=== PATIENT | female | born 1960 | race Caucasian/White ===

== ENCOUNTER 2017-05-14 14:48 | Inpatient (IN) | payer MEDICAID ==
[~2017-05-14] VITALS: Ht 149.9 cm; Wt 57.0 kg
[2017-05-14 16:10] LABS: ASPARTATE AMINO TRANSFERASE 66 U/L (15-37); BLOOD UREA NITROGEN 11 mg/dL (7-18)
[2017-05-14 16:13] LABS: ACETAMINOPHEN 22 mcg/mL (10-30)
[2017-05-14 17:22] LABS: DAU SCREEN DISCLAIMER
[2017-05-14] MEDS ORDERED: NALOXONE 0.4 MG/ML, 1ML ONE (19:37)
[2017-05-14] MEDS ORDERED: NALOXONE 0.4 MG/ML, 1ML IVPush ONE (20:00)
[2017-05-14] MEDS ORDERED: NS + 40MEQ KCL 1,000 ML IV ONE (20:22)
[2017-05-14] MEDS ORDERED: POTASSIUM CHLORIDE 20 MEQ TAB.ER.PRT ONE (20:23)
[2017-05-14] MEDS ORDERED: POTASSIUM CHLORIDE 40 MEQ in SODIUM CHLORIDE 0.9% 500 ML IV ONE (20:30)
[2017-05-14] MEDS: POTASSIUM CHLORIDE 20 MEQ TAB.ER.PRT PO ONE ×2 (20:33→21:40)
[2017-05-14] MEDS ORDERED: ACETAMINOPHEN 325 MG TABLET PO PRN (21:30)
[2017-05-14] MEDS ORDERED: DOCUSATE 100 MG CAPSULE PO PRN (21:30)
[2017-05-14] MEDS ORDERED: POLYETHYLENE GLYCOL 17 GM PACKET PO PRN (21:30)
[2017-05-14] MEDS ORDERED: ONDANSETRON 2MG/ML, 2ML IVPush PRN (21:30)
[2017-05-14 22:08] VITALS: BP 150/95
[2017-05-14] MEDS ORDERED: PNEUMOCOCCAL 23 VACCINE IM-VACC ONE (22:30)
[2017-05-14] MEDS: NICOTINE 14MG/24 HR PATCH.TD24 TD SCH (22:45)
[2017-05-14] MEDS: ENOXAPARIN 40 MG/0.4 ML SQ SCH (22:46)
[2017-05-15 01:39] VITALS: BP 145/93
[2017-05-15] MEDS: NS + 20MEQ KCL 1,000 ML IV SCH ×2 (02:59→12:27)
[2017-05-15 06:16] LABS: BLOOD UREA NITROGEN 7 mg/dL (7-18)
[2017-05-15 07:13] VITALS: BP 143/81
[2017-05-15] MEDS ORDERED: MAGNESIUM SULFATE PMX 2GM/50ML 50 ML IV ONE (10:00)
[2017-05-15] MEDS: SENNA/DOCUSATE TABLET PO SCH (10:58)
[2017-05-15] MEDS: HYDROcodone/APAP 5/325 TABLET PO PRN ×4 (11:01→23:03)
[2017-05-15 12:21] VITALS: BP 153/97
[2017-05-15 20:02] VITALS: BP 168/120
[2017-05-15] MEDS ORDERED: LORazepam 0.5MG TABLET PO ONE (22:00)
[2017-05-15] MEDS ORDERED: LORazepam 1MG TABLET ONE (22:00)
[2017-05-15 22:03] VITALS: BP 152/98
[2017-05-15] MEDS: ENOXAPARIN 40 MG/0.4 ML SQ SCH (22:05)
[2017-05-15] MEDS: NICOTINE 14MG/24 HR PATCH.TD24 TD SCH (22:05)
[2017-05-16 01:59] VITALS: BP 161/102
[2017-05-16] MEDS: HYDROcodone/APAP 5/325 TABLET PO PRN ×4 (03:01→15:51)
[2017-05-16 06:18] LABS: ASPARTATE AMINO TRANSFERASE 3827 U/L (15-37); BLOOD UREA NITROGEN 4 mg/dL (7-18)
[2017-05-16 07:22] VITALS: BP 159/106
[2017-05-16] MEDS ORDERED: ACETYLCYSTEINE IV ONE ×3 (08:00→12:30)
[2017-05-16] MEDS ORDERED: DEXTROSE 5% IV ONE ×3 (08:00→12:30)
[2017-05-16 08:45] VITALS: BP 134/88
[2017-05-16] MEDS: MAGNESIUM OXIDE 400 MG TABLET PO SCH (08:48)
[2017-05-16] MEDS: SENNA/DOCUSATE TABLET PO SCH (08:48)
[2017-05-16 13:15] VITALS: BP 147/99
[2017-05-16] MEDS ORDERED: OXYcodone IR 5MG TABLET PO ONE (16:30)
[2017-05-16 20:03] VITALS: BP 140/93
[2017-05-16] MEDS: NICOTINE 14MG/24 HR PATCH.TD24 TD SCH (22:08)
[2017-05-16] MEDS: ENOXAPARIN 40 MG/0.4 ML SQ SCH (22:08)
[2017-05-17 03:01] VITALS: BP 130/90
[2017-05-17] MEDS: OXYcodone IR 5MG TABLET PO PRN ×5 (03:49→22:13)
[2017-05-17 05:44] LABS: BLOOD UREA NITROGEN 5 mg/dL (7-18)
[2017-05-17 06:02] LABS: ASPARTATE AMINO TRANSFERASE 1717 U/L (15-37)
[2017-05-17 07:31] VITALS: BP 146/104
[2017-05-17] MEDS: SENNA/DOCUSATE TABLET PO SCH (09:00)
[2017-05-17 09:41] LABS: HEPATITIS C VIRUS ANTIBODY Nonreactive (Nonreactive)
[2017-05-17] MEDS: MAGNESIUM OXIDE 400 MG TABLET PO SCH (09:55)
[2017-05-17 14:35] VITALS: BP 117/86
[2017-05-17 19:37] VITALS: BP 125/89
[2017-05-17] MEDS ORDERED: POTASSIUM CHLORIDE 20 MEQ TAB.ER.PRT PO ONE (20:30)
[2017-05-17] MEDS: ENOXAPARIN 40 MG/0.4 ML SQ SCH (22:13)
[2017-05-17] MEDS: NICOTINE 14MG/24 HR PATCH.TD24 TD SCH (22:14)
[2017-05-18 02:58] VITALS: BP 117/85
[2017-05-18] MEDS: OXYcodone IR 5MG TABLET PO PRN ×5 (03:32→20:18)
[2017-05-18 06:08] LABS: ASPARTATE AMINO TRANSFERASE 485 U/L (15-37); BLOOD UREA NITROGEN 7 mg/dL (7-18)
[2017-05-18 06:53] VITALS: BP 122/85
[2017-05-18] MEDS: MAGNESIUM OXIDE 400 MG TABLET PO SCH (07:43)
[2017-05-18] MEDS: SENNA/DOCUSATE TABLET PO SCH (07:43)
[2017-05-18 14:30] VITALS: BP 134/81
[2017-05-18 20:39] VITALS: BP 134/88
[2017-05-18] MEDS: NICOTINE 14MG/24 HR PATCH.TD24 TD SCH (22:33)
[2017-05-18] MEDS: ENOXAPARIN 40 MG/0.4 ML SQ SCH (22:33)
[2017-05-19] MEDS: OXYcodone IR 5MG TABLET PO PRN ×4 (01:06→12:57)
[2017-05-19 02:34] VITALS: BP 155/97
[2017-05-19 06:25] LABS: ASPARTATE AMINO TRANSFERASE 209 U/L (15-37); BLOOD UREA NITROGEN 12 mg/dL (7-18)
[2017-05-19 06:50] VITALS: BP 122/83
[2017-05-19] MEDS: SENNA/DOCUSATE TABLET PO SCH (08:12)
[2017-05-19] MEDS: MAGNESIUM OXIDE 400 MG TABLET PO SCH (08:12)
[2017-05-19 13:03] VITALS: BP 127/86
[2017-05-19] MEDS ORDERED: OXYC5TAB3 PO (15:07)
== END 2017-05-19 15:10 | disposition home or self-care (01) | DRG 917 ==
LOC: ED 20:53 → EDIP 21:00 → SUATTDRO 21:08 → 4NOR 22:02
PROVIDERS: ADMIT Family Medicine; ATTEND Internal Medicine
DX: T42.4X1A Poisoning by benzodiazepines, accidental (unintentional), initial encounter (principal); N17.0 Acute kidney failure with tubular necrosis; G92 Toxic encephalopathy; J96.01 Acute respiratory failure with hypoxia; D75.1 Secondary polycythemia; J44.9 Chronic obstructive pulmonary disease, unspecified; G89.29 Other chronic pain; F41.9 Anxiety disorder, unspecified; E87.6 Hypokalemia; E86.0 Dehydration; E83.42 Hypomagnesemia; Z66 Do not resuscitate; F17.210 Nicotine dependence, cigarettes, uncomplicated; M25.521 Pain in right elbow; S52.123A Displaced fracture of head of unspecified radius, initial encounter for closed fracture; Z83.3 Family history of diabetes mellitus; Z23 Encounter for immunization
CPT/HCPCS: 36415; 70450; 71010; 76700; 80048; 80053; 80074; 80307; 80329; 82550; 82668; 83540; 83550; 83735; 84100; 84443; 85025; 90732; 93005; 96365; 96375; J0132; J1650; J2310; J3480; J7060; J7070; G0480; J3475; J7040

== ENCOUNTER 2017-05-23 13:00 | Emergency (ER) | payer MEDICAID ==
[~2017-05-23] VITALS: Ht 149.9 cm; Wt 55.8 kg
[~2017-05-23 13:00] MED LIST: OXYC5TAB3 PO
[2017-05-23] MEDS ORDERED: SODIUM CHLORIDE 0.9%, 500ML IVBOLUS ONE (14:00)
[2017-05-23] MEDS ORDERED: SODIUM CHLORIDE FLUSH 10ML SYR IVF ONE (14:00)
[2017-05-23] MEDS ORDERED: ONDANSETRON 2MG/ML, 2ML IVPush ONE (14:00)
[2017-05-23 14:44] LABS: ASPARTATE AMINO TRANSFERASE 57 U/L (15-37); BLOOD UREA NITROGEN 13 mg/dL (7-18)
[2017-05-23 14:48] LABS: ACETAMINOPHEN < 2 mcg/mL (10-30)
[2017-05-23] MEDS ORDERED: ONDANSETRON 2MG/ML, 2ML ONE (15:19)
[2017-05-23] MEDS ORDERED: OXYcodone IR 5MG TABLET PO ONE (16:00)
[2017-05-23] MEDS ORDERED: OXYcodone IR 5MG TABLET ONE (16:12)
[2017-05-23 16:35] VITALS: BP 144/72
== END 2017-05-23 16:37 | disposition home or self-care (01) ==
LOC: ED 14:08
DX: R53.1 Weakness (principal); F32.9 Major depressive disorder, single episode, unspecified; R74.0 Nonspecific elevation of levels of transaminase and lactic acid dehydrogenase [LDH]; F10.10 Alcohol abuse, uncomplicated; J44.9 Chronic obstructive pulmonary disease, unspecified; F41.9 Anxiety disorder, unspecified; E87.6 Hypokalemia; Z72.9 Problem related to lifestyle, unspecified
CPT/HCPCS: 36415; 71020; 80053; 80307; 80329; 83690; 85025; 85610; 85730; 93005; 96360; G0480; J7040

== ENCOUNTER 2017-06-15 10:16 | Inpatient (IN) | payer MEDICAID ==
[~2017-06-15] VITALS: Ht 149.9 cm; Wt 59.3 kg
[2017-06-15] MEDS ORDERED: LORazepam 1MG TABLET ONE ×2 (10:25→19:37)
[2017-06-15] MEDS ORDERED: CARV3.122 PO (10:27)
[2017-06-15] MEDS ORDERED: LORazepam 1MG TABLET PO ONE ×2 (10:30→20:00)
[2017-06-15 10:38] LABS: HEMATOCRIT 56.8 % (34.6-47.8); HEMOGLOBIN 18.9 g/dL (11.7-16.4); WHITE BLOOD COUNT 9.2 x10^3/uL (3.4-10)
[2017-06-15 10:38] LABS: DAU SCREEN DISCLAIMER
[2017-06-15 10:50] LABS: BLOOD UREA NITROGEN 12 mg/dL (7-18)
[2017-06-15] MEDS ORDERED: POTASSIUM CHLORIDE 20 MEQ TAB.ER.PRT ONE (10:58)
[2017-06-15 10:59] LABS: ASPARTATE AMINO TRANSFERASE 43 U/L (15-37)
[2017-06-15 11:00] LABS: ACETAMINOPHEN < 2 mcg/mL (10-30)
[2017-06-15] MEDS ORDERED: POTASSIUM CHLORIDE 20 MEQ TAB.ER.PRT PO ONE (11:00)
[2017-06-15] MEDS ORDERED: ONDANSETRON 2MG/ML, 2ML IV PRN (22:30)
[2017-06-15] MEDS ORDERED: ALUMINUM/MAG/SIMETHICONE 30 ML UDC PO PRN (22:30)
[2017-06-15] MEDS: ENOXAPARIN 40 MG/0.4 ML SQ SCH (22:30)
[2017-06-15] MEDS ORDERED: LORazepam 2 MG/ML, 1ML IV PRN (22:30)
[2017-06-15] MEDS ORDERED: ONDANSETRON 2MG/ML, 2ML ONE (23:33)
[2017-06-16] VITALS (7 sets, daily range): BP systolic 129–169; BP diastolic 90–119
[2017-06-16] MEDS ORDERED: DIPHENHYDRAMINE 50 MG CAPSULE ONE (03:57)
[2017-06-16] MEDS ORDERED: LORazepam 2 MG/ML, 1ML ONE (03:58)
[2017-06-16] MEDS: LORazepam 2 MG/ML, 1ML IV PRN ×4 (04:04→23:10)
[2017-06-16] MEDS: DIPHENHYDRAMINE 50 MG CAPSULE PO PRN (04:05)
[2017-06-16] MEDS: POTASSIUM CHLORIDE 10 MEQ, MAGNESIUM SULFATE 1 GM, THIAMINE 100 MG, FOLIC ACID 1 MG, MV... IV SCH (09:42)
[2017-06-16] MEDS: BACLOFEN 10 MG TABLET PO SCH ×2 (09:42→21:44)
[2017-06-16] MEDS: LISINOPRIL 10 MG TABLET PO SCH (14:04)
[2017-06-16] MEDS: metroNIDAZOLE 500 MG TABLET PO SCH (21:44)
[2017-06-16] MEDS: ENOXAPARIN 40 MG/0.4 ML SQ SCH (23:01)
[2017-06-16] MEDS: IBUPROFEN 200 MG TABLET PO PRN (23:01)
[2017-06-17 02:31] VITALS: BP 164/121
[2017-06-17 03:02] VITALS: BP 147/99
[2017-06-17] MEDS: IBUPROFEN 200 MG TABLET PO PRN ×2 (06:22→12:41)
[2017-06-17] MEDS: LORazepam 2 MG/ML, 1ML IV PRN ×2 (06:22→09:09)
[2017-06-17 09:00] VITALS: BP 191/102
[2017-06-17] MEDS ORDERED: LORazepam 2 MG/ML, 1ML IVPush PRN (09:00)
[2017-06-17] MEDS ORDERED: LABETALOL 5MG/ML, 20ML IVPush PRN (09:00)
[2017-06-17] MEDS: LISINOPRIL 10 MG TABLET PO SCH (09:09)
[2017-06-17] MEDS: BACLOFEN 10 MG TABLET PO SCH ×2 (09:09→20:29)
[2017-06-17] MEDS: metroNIDAZOLE 500 MG TABLET PO SCH ×3 (09:09→20:29)
[2017-06-17] MEDS: POTASSIUM CHLORIDE 10 MEQ, MAGNESIUM SULFATE 1 GM, THIAMINE 100 MG, FOLIC ACID 1 MG, MV... IV SCH (12:34)
[2017-06-17] MEDS ORDERED: LORazepam 1MG TABLET ONE (12:49)
[2017-06-17 15:53] VITALS: BP 144/94
[2017-06-17 19:44] VITALS: BP 147/93
[2017-06-17] MEDS: ENOXAPARIN 40 MG/0.4 ML SQ SCH (22:58)
[2017-06-18] VITALS (10 sets, daily range): BP systolic 144–167; BP diastolic 90–125
[2017-06-18] MEDS: LORazepam 2 MG/ML, 1ML IV PRN ×3 (01:50→14:20)
[2017-06-18] MEDS: IBUPROFEN 200 MG TABLET PO PRN ×3 (04:58→17:33)
[2017-06-18] MEDS: LISINOPRIL 20 MG TABLET PO SCH (07:17)
[2017-06-18] MEDS: BACLOFEN 10 MG TABLET PO SCH ×2 (08:23→20:20)
[2017-06-18] MEDS: metroNIDAZOLE 500 MG TABLET PO SCH ×3 (08:23→20:20)
[2017-06-18] MEDS: CARVEDILOL 3.125 MG TABLET PO SCH ×2 (10:11→17:33)
[2017-06-18] MEDS: FOLIC ACID 1 MG TABLET PO SCH (10:11)
[2017-06-18] MEDS: MULTIVITAMIN 1 TABLET PO SCH (10:11)
[2017-06-18] MEDS: THIAMINE 100MG TABLET PO SCH (10:11)
[2017-06-18 10:32] LABS: BLOOD UREA NITROGEN 13 mg/dL (7-18)
[2017-06-18] MEDS: POTASSIUM CHLORIDE 20 MEQ TAB.ER.PRT PO SCH (17:00)
[2017-06-18] MEDS: ENOXAPARIN 40 MG/0.4 ML SQ SCH (20:20)
[2017-06-19] MEDS: IBUPROFEN 200 MG TABLET PO PRN ×4 (01:36→22:35)
[2017-06-19] MEDS: DIPHENHYDRAMINE 50 MG CAPSULE PO PRN (01:36)
[2017-06-19 01:37] VITALS: BP 147/105
[2017-06-19 05:12] LABS: BLOOD UREA NITROGEN 8 mg/dL (7-18)
[2017-06-19] MEDS: CARVEDILOL 3.125 MG TABLET PO SCH ×2 (06:07→16:36)
[2017-06-19 07:57] VITALS: BP 126/88
[2017-06-19] MEDS: THIAMINE 100MG TABLET PO SCH (08:25)
[2017-06-19] MEDS: BACLOFEN 10 MG TABLET PO SCH ×2 (08:25→20:48)
[2017-06-19] MEDS: FOLIC ACID 1 MG TABLET PO SCH (08:25)
[2017-06-19] MEDS: metroNIDAZOLE 500 MG TABLET PO SCH ×3 (08:26→20:48)
[2017-06-19] MEDS: MULTIVITAMIN 1 TABLET PO SCH (08:26)
[2017-06-19] MEDS: POTASSIUM CHLORIDE 20 MEQ TAB.ER.PRT PO SCH (08:26)
[2017-06-19] MEDS: LISINOPRIL 20 MG TABLET PO SCH (08:26)
[2017-06-19] MEDS: LORazepam 2 MG/ML, 1ML IV PRN (11:05)
[2017-06-19 12:37] VITALS: BP 145/86
[2017-06-19] MEDS: FLUOXETINE 20 MG CAPSULE PO SCH (16:36)
[2017-06-19 19:47] VITALS: BP 145/88
[2017-06-19] MEDS: TRAZODONE 50MG TABLET PO SCH (20:48)
[2017-06-19] MEDS: ENOXAPARIN 40 MG/0.4 ML SQ SCH (22:35)
[2017-06-20 04:36] VITALS: BP 138/85
[2017-06-20] MEDS: CARVEDILOL 3.125 MG TABLET PO SCH ×2 (05:04→17:29)
[2017-06-20] MEDS: IBUPROFEN 200 MG TABLET PO PRN ×4 (05:04→23:19)
[2017-06-20 08:09] VITALS: BP 146/102
[2017-06-20] MEDS: BACLOFEN 10 MG TABLET PO SCH ×2 (08:12→20:25)
[2017-06-20] MEDS: MULTIVITAMIN 1 TABLET PO SCH (08:12)
[2017-06-20] MEDS: FLUOXETINE 20 MG CAPSULE PO SCH (08:12)
[2017-06-20] MEDS: THIAMINE 100MG TABLET PO SCH (08:12)
[2017-06-20] MEDS: LISINOPRIL 20 MG TABLET PO SCH (08:12)
[2017-06-20] MEDS: metroNIDAZOLE 500 MG TABLET PO SCH ×3 (08:12→20:25)
[2017-06-20] MEDS: FOLIC ACID 1 MG TABLET PO SCH (08:12)
[2017-06-20] MEDS: LORazepam 2 MG/ML, 1ML IV PRN (11:43)
[2017-06-20 14:25] VITALS: BP 128/85
[2017-06-20 16:55] VITALS: BP 144/75
[2017-06-20 19:00] VITALS: BP 132/91
[2017-06-20] MEDS: TRAZODONE 50MG TABLET PO SCH (20:25)
[2017-06-20] MEDS: ENOXAPARIN 40 MG/0.4 ML SQ SCH (23:19)
[2017-06-21 01:24] VITALS: BP 133/89
[2017-06-21] MEDS: CARVEDILOL 3.125 MG TABLET PO SCH ×2 (05:31→18:03)
[2017-06-21] MEDS: IBUPROFEN 200 MG TABLET PO PRN (05:31)
[2017-06-21 05:33] VITALS: BP 137/100
[2017-06-21 07:53] VITALS: BP 141/90
[2017-06-21] MEDS: metroNIDAZOLE 500 MG TABLET PO SCH ×3 (08:46→21:12)
[2017-06-21] MEDS: BACLOFEN 10 MG TABLET PO SCH ×2 (08:48→21:12)
[2017-06-21] MEDS: FOLIC ACID 1 MG TABLET PO SCH (08:48)
[2017-06-21] MEDS: MULTIVITAMIN 1 TABLET PO SCH (08:48)
[2017-06-21] MEDS: LISINOPRIL 20 MG TABLET PO SCH (08:49)
[2017-06-21] MEDS: FLUOXETINE 20 MG CAPSULE PO SCH (08:49)
[2017-06-21] MEDS: THIAMINE 100MG TABLET PO SCH (08:50)
[2017-06-21] MEDS: LACTOBACILLUS CHEW TABLET PO SCH ×3 (11:42→21:12)
[2017-06-21] MEDS: LORazepam 1MG TABLET PO PRN ×2 (11:43→18:48)
[2017-06-21 14:55] VITALS: BP 150/100
[2017-06-21 20:20] VITALS: BP 144/96
[2017-06-21] MEDS: TRAZODONE 50MG TABLET PO SCH (21:12)
[2017-06-21] MEDS: ENOXAPARIN 40 MG/0.4 ML SQ SCH (22:45)
[2017-06-22 02:15] VITALS: BP 132/91
[2017-06-22 05:00] VITALS: BP 141/91
[2017-06-22] MEDS: LACTOBACILLUS CHEW TABLET PO SCH ×4 (05:02→21:12)
[2017-06-22] MEDS: CARVEDILOL 3.125 MG TABLET PO SCH ×2 (05:02→17:13)
[2017-06-22 07:15] VITALS: BP 126/92
[2017-06-22] MEDS: metroNIDAZOLE 500 MG TABLET PO SCH ×3 (07:39→21:12)
[2017-06-22] MEDS: FLUOXETINE 20 MG CAPSULE PO SCH (07:40)
[2017-06-22] MEDS: MULTIVITAMIN 1 TABLET PO SCH (07:40)
[2017-06-22] MEDS: FOLIC ACID 1 MG TABLET PO SCH (07:40)
[2017-06-22] MEDS: LISINOPRIL 20 MG TABLET PO SCH (07:40)
[2017-06-22] MEDS: THIAMINE 100MG TABLET PO SCH (07:40)
[2017-06-22] MEDS: BACLOFEN 10 MG TABLET PO SCH ×2 (07:40→21:12)
[2017-06-22] MEDS: LORazepam 1MG TABLET PO PRN ×2 (09:35→15:36)
[2017-06-22 13:52] VITALS: BP 114/80
[2017-06-22 19:18] VITALS: BP 133/88
[2017-06-22] MEDS: TRAZODONE 50MG TABLET PO SCH (21:11)
[2017-06-22] MEDS: ENOXAPARIN 40 MG/0.4 ML SQ SCH (23:22)
[2017-06-23 01:03] VITALS: BP 126/85
[2017-06-23 06:05] VITALS: BP 165/108
[2017-06-23] MEDS: CARVEDILOL 3.125 MG TABLET PO SCH ×2 (06:08→16:48)
[2017-06-23] MEDS: LACTOBACILLUS CHEW TABLET PO SCH ×4 (06:08→19:52)
[2017-06-23 06:25] VITALS: BP 169/108
[2017-06-23] MEDS: LORazepam 1MG TABLET PO PRN ×2 (06:47→19:53)
[2017-06-23] MEDS: FLUOXETINE 20 MG CAPSULE PO SCH (07:42)
[2017-06-23] MEDS: THIAMINE 100MG TABLET PO SCH (07:42)
[2017-06-23] MEDS: MULTIVITAMIN 1 TABLET PO SCH (07:42)
[2017-06-23] MEDS: FOLIC ACID 1 MG TABLET PO SCH (07:42)
[2017-06-23] MEDS: BACLOFEN 10 MG TABLET PO SCH ×2 (07:43→19:53)
[2017-06-23] MEDS: LISINOPRIL 20 MG TABLET PO SCH (07:43)
[2017-06-23] MEDS: metroNIDAZOLE 500 MG TABLET PO SCH ×3 (07:43→19:53)
[2017-06-23] MEDS ORDERED: ONDANSETRON ODT 4 MG PO PRN (08:30)
[2017-06-23 12:15] VITALS: BP 137/90
[2017-06-23] MEDS: TRAZODONE 50MG TABLET PO SCH (19:53)
[2017-06-23 20:02] VITALS: BP 139/81
[2017-06-23] MEDS: ENOXAPARIN 40 MG/0.4 ML SQ SCH (22:35)
[2017-06-24 02:44] VITALS: BP 156/104
[2017-06-24 05:50] VITALS: BP 127/84
[2017-06-24] MEDS: CARVEDILOL 3.125 MG TABLET PO SCH ×2 (05:51→18:38)
[2017-06-24] MEDS: LACTOBACILLUS CHEW TABLET PO SCH ×4 (05:51→21:24)
[2017-06-24 07:10] VITALS: BP 141/87
[2017-06-24] MEDS: FLUOXETINE 20 MG CAPSULE PO SCH (08:32)
[2017-06-24] MEDS: metroNIDAZOLE 500 MG TABLET PO SCH ×3 (08:32→21:24)
[2017-06-24] MEDS: MULTIVITAMIN 1 TABLET PO SCH (08:32)
[2017-06-24] MEDS: THIAMINE 100MG TABLET PO SCH (08:32)
[2017-06-24] MEDS: BACLOFEN 10 MG TABLET PO SCH ×2 (08:32→21:24)
[2017-06-24] MEDS: FOLIC ACID 1 MG TABLET PO SCH (08:32)
[2017-06-24] MEDS: LISINOPRIL 20 MG TABLET PO SCH (08:32)
[2017-06-24] MEDS: LORazepam 1MG TABLET PO PRN ×2 (10:50→21:24)
[2017-06-24 14:20] VITALS: BP 127/85
[2017-06-24 19:48] VITALS: BP 127/86
[2017-06-24] MEDS: TRAZODONE 50MG TABLET PO SCH (21:24)
[2017-06-24] MEDS: ENOXAPARIN 40 MG/0.4 ML SQ SCH (22:25)
[2017-06-25 02:14] VITALS: BP 130/80
[2017-06-25] MEDS: LACTOBACILLUS CHEW TABLET PO SCH ×4 (05:45→20:11)
[2017-06-25] MEDS: CARVEDILOL 3.125 MG TABLET PO SCH ×2 (05:45→17:18)
[2017-06-25 07:11] VITALS: BP 131/96
[2017-06-25] MEDS: MULTIVITAMIN 1 TABLET PO SCH (09:42)
[2017-06-25] MEDS: THIAMINE 100MG TABLET PO SCH (09:42)
[2017-06-25] MEDS: LISINOPRIL 20 MG TABLET PO SCH (09:42)
[2017-06-25] MEDS: FLUOXETINE 20 MG CAPSULE PO SCH (09:42)
[2017-06-25] MEDS: BACLOFEN 10 MG TABLET PO SCH ×2 (09:42→20:11)
[2017-06-25] MEDS: metroNIDAZOLE 500 MG TABLET PO SCH ×3 (09:43→20:12)
[2017-06-25] MEDS: LORazepam 1MG TABLET PO PRN ×2 (09:43→20:12)
[2017-06-25] MEDS: FOLIC ACID 1 MG TABLET PO SCH (09:48)
[2017-06-25] MEDS ORDERED: FLUOXETINE 20 MG CAPSULE PO ONE (12:00)
[2017-06-25 14:14] VITALS: BP 104/70
[2017-06-25 17:15] VITALS: BP 144/96
[2017-06-25] MEDS: TRAZODONE 50MG TABLET PO SCH (20:12)
[2017-06-25] MEDS: ENOXAPARIN 40 MG/0.4 ML SQ SCH (20:12)
[2017-06-25 20:21] VITALS: BP 138/85
[2017-06-26 03:52] VITALS: BP 141/89
[2017-06-26] MEDS: LACTOBACILLUS CHEW TABLET PO SCH ×4 (05:18→20:39)
[2017-06-26] MEDS: CARVEDILOL 3.125 MG TABLET PO SCH ×2 (05:18→17:28)
[2017-06-26 08:22] VITALS: BP 141/92
[2017-06-26] MEDS: FOLIC ACID 1 MG TABLET PO SCH (09:24)
[2017-06-26] MEDS: THIAMINE 100MG TABLET PO SCH (09:24)
[2017-06-26] MEDS: metroNIDAZOLE 500 MG TABLET PO SCH ×3 (09:24→20:39)
[2017-06-26] MEDS: MULTIVITAMIN 1 TABLET PO SCH (09:24)
[2017-06-26] MEDS: LISINOPRIL 20 MG TABLET PO SCH (09:24)
[2017-06-26] MEDS: BACLOFEN 10 MG TABLET PO SCH ×2 (09:24→21:55)
[2017-06-26] MEDS: FLUOXETINE 20 MG CAPSULE PO SCH (09:25)
[2017-06-26 13:47] VITALS: BP 135/73
[2017-06-26] MEDS: LORazepam 1MG TABLET PO PRN (17:32)
[2017-06-26 20:38] VITALS: BP 130/87
[2017-06-26] MEDS: TRAZODONE 50MG TABLET PO SCH (20:39)
[2017-06-26] MEDS: ENOXAPARIN 40 MG/0.4 ML SQ SCH (21:55)
[2017-06-27] MEDS: CARVEDILOL 3.125 MG TABLET PO SCH ×2 (05:37→17:44)
[2017-06-27] MEDS: LACTOBACILLUS CHEW TABLET PO SCH ×4 (05:37→21:38)
[2017-06-27 08:30] VITALS: BP 128/87
[2017-06-27] MEDS: FLUOXETINE 20 MG CAPSULE PO SCH (08:30)
[2017-06-27] MEDS: BACLOFEN 10 MG TABLET PO SCH ×2 (08:30→21:39)
[2017-06-27] MEDS: metroNIDAZOLE 500 MG TABLET PO SCH ×3 (08:30→21:38)
[2017-06-27] MEDS: THIAMINE 100MG TABLET PO SCH (08:30)
[2017-06-27] MEDS: LISINOPRIL 20 MG TABLET PO SCH (08:30)
[2017-06-27] MEDS: MULTIVITAMIN 1 TABLET PO SCH (08:30)
[2017-06-27] MEDS: FOLIC ACID 1 MG TABLET PO SCH (08:30)
[2017-06-27 14:21] VITALS: BP 135/84
[2017-06-27 19:00] VITALS: BP 126/85
[2017-06-27] MEDS: TRAZODONE 50MG TABLET PO SCH (21:38)
[2017-06-27] MEDS: ENOXAPARIN 40 MG/0.4 ML SQ SCH (21:39)
[2017-06-28 02:42] VITALS: BP 112/90
[2017-06-28 06:27] VITALS: BP 135/94
[2017-06-28] MEDS: CARVEDILOL 3.125 MG TABLET PO SCH ×2 (06:28→17:23)
[2017-06-28] MEDS: LACTOBACILLUS CHEW TABLET PO SCH ×4 (06:28→22:06)
[2017-06-28 08:15] VITALS: BP 136/89
[2017-06-28] MEDS: THIAMINE 100MG TABLET PO SCH (08:49)
[2017-06-28] MEDS: LISINOPRIL 20 MG TABLET PO SCH (08:49)
[2017-06-28] MEDS: BACLOFEN 10 MG TABLET PO SCH ×2 (08:49→22:06)
[2017-06-28] MEDS: FLUOXETINE 20 MG CAPSULE PO SCH (08:49)
[2017-06-28] MEDS: FOLIC ACID 1 MG TABLET PO SCH (08:49)
[2017-06-28] MEDS: metroNIDAZOLE 500 MG TABLET PO SCH ×3 (08:49→22:06)
[2017-06-28] MEDS: MULTIVITAMIN 1 TABLET PO SCH (08:49)
[2017-06-28] MEDS: LORazepam 1MG TABLET PO PRN ×2 (08:53→15:07)
[2017-06-28] MEDS: KETOROLAC 30 MG/1 ML IM PRN ×2 (10:55→20:28)
[2017-06-28 13:55] VITALS: BP 132/84
[2017-06-28 19:42] VITALS: BP 119/81
[2017-06-28] MEDS: TRAZODONE 50MG TABLET PO SCH (22:06)
[2017-06-28] MEDS: ENOXAPARIN 40 MG/0.4 ML SQ SCH (22:06)
[2017-06-29 02:20] VITALS: BP 103/69
[2017-06-29 05:35] VITALS: BP 136/94
[2017-06-29] MEDS: CARVEDILOL 3.125 MG TABLET PO SCH ×2 (05:39→17:22)
[2017-06-29] MEDS: LACTOBACILLUS CHEW TABLET PO SCH ×4 (05:39→21:00)
[2017-06-29] MEDS: KETOROLAC 30 MG/1 ML IM PRN ×3 (05:40→17:22)
[2017-06-29 06:40] VITALS: BP 159/106
[2017-06-29] MEDS: LISINOPRIL 20 MG TABLET PO SCH (08:59)
[2017-06-29] MEDS: MULTIVITAMIN 1 TABLET PO SCH (08:59)
[2017-06-29] MEDS: FOLIC ACID 1 MG TABLET PO SCH (08:59)
[2017-06-29] MEDS: BACLOFEN 10 MG TABLET PO SCH ×2 (08:59→21:00)
[2017-06-29] MEDS: metroNIDAZOLE 500 MG TABLET PO SCH ×3 (08:59→21:00)
[2017-06-29] MEDS: THIAMINE 100MG TABLET PO SCH (08:59)
[2017-06-29] MEDS: FLUOXETINE 20 MG CAPSULE PO SCH (09:01)
[2017-06-29 12:35] VITALS: BP 137/90
[2017-06-29] MEDS: LORazepam 1MG TABLET PO PRN ×2 (15:14→22:35)
[2017-06-29 18:30] VITALS: BP 103/69
[2017-06-29 19:17] VITALS: BP 137/85
[2017-06-29] MEDS: TRAZODONE 50MG TABLET PO SCH (21:00)
[2017-06-29] MEDS: ENOXAPARIN 40 MG/0.4 ML SQ SCH (22:35)
[2017-06-30 02:00] VITALS: BP 103/63
[2017-06-30 05:33] VITALS: BP 139/89
[2017-06-30] MEDS: LACTOBACILLUS CHEW TABLET PO SCH ×4 (05:36→22:51)
[2017-06-30] MEDS: CARVEDILOL 3.125 MG TABLET PO SCH ×2 (05:36→16:57)
[2017-06-30] MEDS: LORazepam 1MG TABLET PO PRN ×2 (06:45→16:56)
[2017-06-30 08:30] VITALS: BP 158/109
[2017-06-30] MEDS ORDERED: THIA100T6 PO (08:43)
[2017-06-30] MEDS ORDERED: MULT1TAB60 PO (08:43)
[2017-06-30] MEDS ORDERED: FOLI-17 PO (08:43)
[2017-06-30] MEDS ORDERED: LISI-170 PO (08:43)
[2017-06-30] MEDS: FLUOXETINE 20 MG CAPSULE PO SCH (10:47)
[2017-06-30] MEDS: THIAMINE 100MG TABLET PO SCH (10:47)
[2017-06-30] MEDS: MULTIVITAMIN 1 TABLET PO SCH (10:48)
[2017-06-30] MEDS: BACLOFEN 10 MG TABLET PO SCH ×2 (10:48→22:51)
[2017-06-30] MEDS: FOLIC ACID 1 MG TABLET PO SCH (10:48)
[2017-06-30] MEDS: LISINOPRIL 20 MG TABLET PO SCH (10:48)
[2017-06-30 14:30] VITALS: BP 127/87
[2017-06-30 19:06] VITALS: BP 122/82
[2017-06-30] MEDS: TRAZODONE 50MG TABLET PO SCH (22:51)
[2017-06-30] MEDS: ENOXAPARIN 40 MG/0.4 ML SQ SCH (22:52)
[2017-07-01 02:04] VITALS: BP 126/82
[2017-07-01] MEDS: CARVEDILOL 3.125 MG TABLET PO SCH ×2 (05:10→16:45)
[2017-07-01] MEDS: LACTOBACILLUS CHEW TABLET PO SCH ×4 (05:10→22:08)
[2017-07-01] MEDS: LORazepam 1MG TABLET PO PRN ×2 (05:13→16:45)
[2017-07-01 07:40] VITALS: BP 136/87
[2017-07-01] MEDS: FOLIC ACID 1 MG TABLET PO SCH (07:42)
[2017-07-01] MEDS: LISINOPRIL 20 MG TABLET PO SCH (07:42)
[2017-07-01] MEDS: FLUOXETINE 20 MG CAPSULE PO SCH (07:42)
[2017-07-01] MEDS: THIAMINE 100MG TABLET PO SCH (07:42)
[2017-07-01] MEDS: MULTIVITAMIN 1 TABLET PO SCH (07:42)
[2017-07-01] MEDS: BACLOFEN 10 MG TABLET PO SCH ×2 (07:42→22:08)
[2017-07-01] MEDS: KETOROLAC 30 MG/1 ML IM PRN ×2 (07:43→15:04)
[2017-07-01 13:52] VITALS: BP 119/81
[2017-07-01 16:48] VITALS: BP 138/94
[2017-07-01 19:45] VITALS: BP 131/88
[2017-07-01] MEDS: TRAZODONE 50MG TABLET PO SCH (22:08)
[2017-07-01] MEDS: ENOXAPARIN 40 MG/0.4 ML SQ SCH (22:08)
[2017-07-02 01:12] VITALS: BP 127/85
[2017-07-02] MEDS: KETOROLAC 30 MG/1 ML IM PRN ×3 (04:03→18:10)
[2017-07-02] MEDS: CARVEDILOL 3.125 MG TABLET PO SCH ×2 (06:13→18:11)
[2017-07-02] MEDS: LACTOBACILLUS CHEW TABLET PO SCH ×4 (06:13→21:51)
[2017-07-02 07:26] VITALS: BP 163/105
[2017-07-02] MEDS: BACLOFEN 10 MG TABLET PO SCH ×2 (07:47→21:52)
[2017-07-02] MEDS: FOLIC ACID 1 MG TABLET PO SCH (07:47)
[2017-07-02] MEDS: FLUOXETINE 20 MG CAPSULE PO SCH (07:48)
[2017-07-02] MEDS: MULTIVITAMIN 1 TABLET PO SCH (07:48)
[2017-07-02] MEDS: THIAMINE 100MG TABLET PO SCH (07:48)
[2017-07-02] MEDS: LISINOPRIL 20 MG TABLET PO SCH (07:49)
[2017-07-02 12:52] VITALS: BP 141/88
[2017-07-02] MEDS: LORazepam 1MG TABLET PO PRN ×2 (13:20→21:52)
[2017-07-02 19:18] VITALS: BP 110/74
[2017-07-02] MEDS: TRAZODONE 50MG TABLET PO SCH (21:51)
[2017-07-02] MEDS: ENOXAPARIN 40 MG/0.4 ML SQ SCH (21:52)
[2017-07-03 01:58] VITALS: BP 118/79
[2017-07-03] MEDS: LACTOBACILLUS CHEW TABLET PO SCH ×4 (05:42→20:34)
[2017-07-03] MEDS: CARVEDILOL 3.125 MG TABLET PO SCH ×2 (05:42→18:10)
[2017-07-03] MEDS: FLUOXETINE 20 MG CAPSULE PO SCH (07:25)
[2017-07-03] MEDS: THIAMINE 100MG TABLET PO SCH (07:25)
[2017-07-03] MEDS: LISINOPRIL 20 MG TABLET PO SCH (07:25)
[2017-07-03] MEDS: MULTIVITAMIN 1 TABLET PO SCH (07:25)
[2017-07-03] MEDS: BACLOFEN 10 MG TABLET PO SCH ×2 (07:25→20:34)
[2017-07-03] MEDS: FOLIC ACID 1 MG TABLET PO SCH (07:25)
[2017-07-03] MEDS: LORazepam 1MG TABLET PO PRN ×3 (07:26→19:45)
[2017-07-03 08:43] VITALS: BP 166/106
[2017-07-03 10:37] VITALS: BP 152/92
[2017-07-03] MEDS: IBUPROFEN 200 MG TABLET PO PRN (13:52)
[2017-07-03 14:08] VITALS: BP 169/111
[2017-07-03 18:11] VITALS: BP 144/92
[2017-07-03 19:34] VITALS: BP 138/98
[2017-07-03] MEDS: TRAZODONE 50MG TABLET PO SCH (20:34)
[2017-07-03] MEDS: ENOXAPARIN 40 MG/0.4 ML SQ SCH (20:34)
[2017-07-04 01:38] VITALS: BP 126/81
[2017-07-04] MEDS: LORazepam 1MG TABLET PO PRN ×4 (03:58→22:20)
[2017-07-04] MEDS: LACTOBACILLUS CHEW TABLET PO SCH ×4 (05:24→21:03)
[2017-07-04] MEDS: CARVEDILOL 3.125 MG TABLET PO SCH ×2 (05:24→17:52)
[2017-07-04 07:19] VITALS: BP 151/84
[2017-07-04] MEDS: MULTIVITAMIN 1 TABLET PO SCH (08:40)
[2017-07-04] MEDS: BACLOFEN 10 MG TABLET PO SCH ×2 (08:40→21:03)
[2017-07-04] MEDS: THIAMINE 100MG TABLET PO SCH (08:40)
[2017-07-04] MEDS: LISINOPRIL 20 MG TABLET PO SCH (08:40)
[2017-07-04] MEDS: FOLIC ACID 1 MG TABLET PO SCH (08:40)
[2017-07-04] MEDS: FLUOXETINE 20 MG CAPSULE PO SCH (08:40)
[2017-07-04 13:58] VITALS: BP 172/129
[2017-07-04 16:46] VITALS: BP 163/112
[2017-07-04] MEDS: IBUPROFEN 200 MG TABLET PO PRN (17:52)
[2017-07-04 18:38] VITALS: BP 143/101
[2017-07-04 20:41] VITALS: BP 159/107
[2017-07-04] MEDS: TRAZODONE 50MG TABLET PO SCH (21:03)
[2017-07-04] MEDS: ENOXAPARIN 40 MG/0.4 ML SQ SCH (21:03)
[2017-07-05 02:02] VITALS: BP 133/85
[2017-07-05] MEDS: LORazepam 1MG TABLET PO PRN ×4 (04:48→23:53)
[2017-07-05] MEDS: CARVEDILOL 3.125 MG TABLET PO SCH ×2 (04:48→18:33)
[2017-07-05] MEDS: LACTOBACILLUS CHEW TABLET PO SCH ×4 (06:00→20:35)
[2017-07-05 07:25] VITALS: BP 126/80
[2017-07-05] MEDS: FOLIC ACID 1 MG TABLET PO SCH (08:28)
[2017-07-05] MEDS: IBUPROFEN 200 MG TABLET PO PRN ×3 (08:28→18:33)
[2017-07-05] MEDS: THIAMINE 100MG TABLET PO SCH (08:28)
[2017-07-05] MEDS: MULTIVITAMIN 1 TABLET PO SCH (08:28)
[2017-07-05] MEDS: LISINOPRIL 20 MG TABLET PO SCH (08:28)
[2017-07-05] MEDS: BACLOFEN 10 MG TABLET PO SCH ×2 (08:28→20:35)
[2017-07-05] MEDS: FLUOXETINE 20 MG CAPSULE PO SCH (08:28)
[2017-07-05 12:06] VITALS: BP 125/89
[2017-07-05 19:44] VITALS: BP 121/80
[2017-07-05] MEDS: ENOXAPARIN 40 MG/0.4 ML SQ SCH (20:35)
[2017-07-05] MEDS: TRAZODONE 50MG TABLET PO SCH (20:35)
[2017-07-06 03:18] VITALS: BP 139/93
[2017-07-06] MEDS: IBUPROFEN 200 MG TABLET PO PRN ×3 (05:08→17:04)
[2017-07-06] MEDS: LORazepam 1MG TABLET PO PRN ×2 (05:57→12:08)
[2017-07-06] MEDS: LACTOBACILLUS CHEW TABLET PO SCH ×4 (05:57→21:16)
[2017-07-06] MEDS: CARVEDILOL 3.125 MG TABLET PO SCH ×2 (05:57→18:03)
[2017-07-06 06:55] VITALS: BP 160/113
[2017-07-06] MEDS: LISINOPRIL 20 MG TABLET PO SCH (07:53)
[2017-07-06] MEDS: FOLIC ACID 1 MG TABLET PO SCH (07:53)
[2017-07-06] MEDS: BACLOFEN 10 MG TABLET PO SCH ×2 (07:54→21:16)
[2017-07-06] MEDS: FLUOXETINE 20 MG CAPSULE PO SCH (07:54)
[2017-07-06] MEDS: MULTIVITAMIN 1 TABLET PO SCH (07:54)
[2017-07-06] MEDS: THIAMINE 100MG TABLET PO SCH (07:54)
[2017-07-06 12:05] VITALS: BP 99/66
[2017-07-06 20:44] VITALS: BP 109/72
[2017-07-06] MEDS: ENOXAPARIN 40 MG/0.4 ML SQ SCH (21:16)
[2017-07-06] MEDS: TRAZODONE 50MG TABLET PO SCH (21:16)
[2017-07-07 01:13] VITALS: BP 125/85
[2017-07-07] MEDS: LORazepam 1MG TABLET PO PRN ×3 (01:20→20:54)
[2017-07-07] MEDS: LACTOBACILLUS CHEW TABLET PO SCH ×4 (06:05→20:53)
[2017-07-07] MEDS: CARVEDILOL 3.125 MG TABLET PO SCH ×2 (06:05→17:35)
[2017-07-07 07:20] VITALS: BP 133/92
[2017-07-07] MEDS: BACLOFEN 10 MG TABLET PO SCH ×2 (07:53→20:53)
[2017-07-07] MEDS: MULTIVITAMIN 1 TABLET PO SCH (07:54)
[2017-07-07] MEDS: LISINOPRIL 20 MG TABLET PO SCH (07:54)
[2017-07-07] MEDS: THIAMINE 100MG TABLET PO SCH (07:54)
[2017-07-07] MEDS: FLUOXETINE 20 MG CAPSULE PO SCH (07:54)
[2017-07-07] MEDS: FOLIC ACID 1 MG TABLET PO SCH (07:54)
[2017-07-07] MEDS: IBUPROFEN 200 MG TABLET PO PRN ×2 (10:44→17:35)
[2017-07-07 13:28] VITALS: BP 119/82
[2017-07-07 19:07] VITALS: BP 193/111
[2017-07-07] MEDS: ENOXAPARIN 40 MG/0.4 ML SQ SCH (20:53)
[2017-07-07] MEDS: TRAZODONE 50MG TABLET PO SCH (20:54)
[2017-07-08 03:00] VITALS: BP 126/85
[2017-07-08] MEDS: IBUPROFEN 200 MG TABLET PO PRN ×2 (05:23→15:52)
[2017-07-08] MEDS: LACTOBACILLUS CHEW TABLET PO SCH ×4 (06:00→21:02)
[2017-07-08 06:15] VITALS: BP 117/83
[2017-07-08] MEDS: CARVEDILOL 3.125 MG TABLET PO SCH ×2 (06:36→17:39)
[2017-07-08] MEDS: MULTIVITAMIN 1 TABLET PO SCH (10:15)
[2017-07-08] MEDS: FOLIC ACID 1 MG TABLET PO SCH (10:15)
[2017-07-08] MEDS: BACLOFEN 10 MG TABLET PO SCH ×2 (10:15→21:02)
[2017-07-08] MEDS: LORazepam 1MG TABLET PO PRN ×2 (10:16→21:02)
[2017-07-08] MEDS: LISINOPRIL 20 MG TABLET PO SCH (10:16)
[2017-07-08] MEDS: FLUOXETINE 20 MG CAPSULE PO SCH (10:16)
[2017-07-08] MEDS: THIAMINE 100MG TABLET PO SCH (10:16)
[2017-07-08 16:50] VITALS: BP 116/84
[2017-07-08 20:15] VITALS: BP 120/84
[2017-07-08] MEDS: TRAZODONE 50MG TABLET PO SCH (21:02)
[2017-07-08] MEDS: ENOXAPARIN 40 MG/0.4 ML SQ SCH (21:04)
[2017-07-09 02:36] VITALS: BP 98/65
[2017-07-09] MEDS: LACTOBACILLUS CHEW TABLET PO SCH ×4 (05:56→20:55)
[2017-07-09 05:57] VITALS: BP 117/84
[2017-07-09] MEDS: CARVEDILOL 3.125 MG TABLET PO SCH ×2 (05:57→18:07)
[2017-07-09 07:50] VITALS: BP 118/85
[2017-07-09] MEDS: LORazepam 1MG TABLET PO PRN ×2 (09:30→20:55)
[2017-07-09] MEDS: FLUOXETINE 20 MG CAPSULE PO SCH (09:31)
[2017-07-09] MEDS: LISINOPRIL 20 MG TABLET PO SCH (09:31)
[2017-07-09] MEDS: MULTIVITAMIN 1 TABLET PO SCH (09:31)
[2017-07-09] MEDS: FOLIC ACID 1 MG TABLET PO SCH (09:31)
[2017-07-09] MEDS: BACLOFEN 10 MG TABLET PO SCH ×2 (09:31→20:55)
[2017-07-09] MEDS: THIAMINE 100MG TABLET PO SCH (09:31)
[2017-07-09] MEDS: IBUPROFEN 200 MG TABLET PO PRN ×2 (10:06→18:07)
[2017-07-09 14:47] VITALS: BP 136/84
[2017-07-09 19:31] VITALS: BP 121/85
[2017-07-09] MEDS: TRAZODONE 50MG TABLET PO SCH (20:55)
[2017-07-09] MEDS: ENOXAPARIN 40 MG/0.4 ML SQ SCH (20:56)
[2017-07-10 02:58] VITALS: BP 100/69
[2017-07-10] MEDS: CARVEDILOL 3.125 MG TABLET PO SCH ×2 (06:00→18:47)
[2017-07-10] MEDS: LACTOBACILLUS CHEW TABLET PO SCH ×4 (06:07→20:52)
[2017-07-10 07:00] VITALS: BP 97/65
[2017-07-10] MEDS: LISINOPRIL 20 MG TABLET PO SCH (09:00)
[2017-07-10] MEDS: LORazepam 1MG TABLET PO PRN ×2 (09:02→20:52)
[2017-07-10] MEDS: IBUPROFEN 200 MG TABLET PO PRN ×2 (09:02→15:04)
[2017-07-10] MEDS: THIAMINE 100MG TABLET PO SCH (09:04)
[2017-07-10] MEDS: FLUOXETINE 20 MG CAPSULE PO SCH (09:05)
[2017-07-10] MEDS: MULTIVITAMIN 1 TABLET PO SCH (09:06)
[2017-07-10] MEDS: BACLOFEN 10 MG TABLET PO SCH ×2 (09:06→20:52)
[2017-07-10] MEDS: FOLIC ACID 1 MG TABLET PO SCH (09:06)
[2017-07-10 14:15] VITALS: BP 122/82
[2017-07-10] MEDS: GABAPENTIN 100 MG CAPSULE PO SCH ×2 (18:48→20:51)
[2017-07-10 19:45] VITALS: BP 122/82
[2017-07-10] MEDS: TRAZODONE 50MG TABLET PO SCH (20:51)
[2017-07-10] MEDS: ENOXAPARIN 40 MG/0.4 ML SQ SCH (20:53)
[2017-07-11 01:23] VITALS: BP 129/88
[2017-07-11] MEDS: LACTOBACILLUS CHEW TABLET PO SCH ×4 (05:42→20:56)
[2017-07-11] MEDS: CARVEDILOL 3.125 MG TABLET PO SCH ×2 (05:42→17:52)
[2017-07-11 08:04] VITALS: BP 139/93
[2017-07-11] MEDS: LORazepam 1MG TABLET PO PRN ×2 (08:38→21:05)
[2017-07-11] MEDS: IBUPROFEN 200 MG TABLET PO PRN ×2 (08:38→15:29)
[2017-07-11] MEDS: FLUOXETINE 20 MG CAPSULE PO SCH (08:39)
[2017-07-11] MEDS: GABAPENTIN 100 MG CAPSULE PO SCH ×3 (08:39→20:57)
[2017-07-11] MEDS: BACLOFEN 10 MG TABLET PO SCH ×2 (08:39→20:57)
[2017-07-11] MEDS: LISINOPRIL 20 MG TABLET PO SCH (08:39)
[2017-07-11] MEDS: THIAMINE 100MG TABLET PO SCH (08:39)
[2017-07-11] MEDS: FOLIC ACID 1 MG TABLET PO SCH (08:39)
[2017-07-11] MEDS: MULTIVITAMIN 1 TABLET PO SCH (08:39)
[2017-07-11 14:00] VITALS: BP 124/84
[2017-07-11 19:50] VITALS: BP 114/83
[2017-07-11] MEDS: TRAZODONE 50MG TABLET PO SCH (20:56)
[2017-07-11] MEDS: ENOXAPARIN 40 MG/0.4 ML SQ SCH (20:58)
[2017-07-12 02:13] VITALS: BP 104/72
[2017-07-12] MEDS: LACTOBACILLUS CHEW TABLET PO SCH ×3 (06:12→16:09)
[2017-07-12] MEDS: CARVEDILOL 3.125 MG TABLET PO SCH (06:12)
[2017-07-12 07:51] VITALS: BP 141/99
[2017-07-12] MEDS: LORazepam 1MG TABLET PO PRN (08:28)
[2017-07-12] MEDS: FLUOXETINE 20 MG CAPSULE PO SCH (08:29)
[2017-07-12] MEDS: GABAPENTIN 100 MG CAPSULE PO SCH ×2 (08:29→16:09)
[2017-07-12] MEDS: FOLIC ACID 1 MG TABLET PO SCH (08:29)
[2017-07-12] MEDS: IBUPROFEN 200 MG TABLET PO PRN ×2 (08:29→16:08)
[2017-07-12] MEDS: BACLOFEN 10 MG TABLET PO SCH (08:29)
[2017-07-12] MEDS: MULTIVITAMIN 1 TABLET PO SCH (08:29)
[2017-07-12] MEDS: LISINOPRIL 20 MG TABLET PO SCH (08:30)
[2017-07-12] MEDS: THIAMINE 100MG TABLET PO SCH (08:31)
[2017-07-12 13:00] VITALS: BP 106/80
[2017-07-12] MEDS ORDERED: ACID1TAB7 PO (16:32)
[2017-07-12] MEDS ORDERED: GABA-826 PO (16:32)
[2017-07-12] MEDS ORDERED: FLUO20CA8 PO (16:32)
[2017-07-12] MEDS ORDERED: TRAZ50TA18 PO (16:32)
[2017-07-12] MEDS ORDERED: CARV3.1212 PO (16:32)
[2017-07-12] MEDS ORDERED: TRAM50TA2 PO (16:32)
[2017-07-12] MEDS ORDERED: IBUP-1484 PO (16:32)
[2017-07-12] MEDS ORDERED: DIPH50CA PO (16:32)
== END 2017-07-12 18:00 | disposition home or self-care (01) | DRG 897 ==
LOC: ED 11:23 → EDIP 19:46 → 4NOR 06-16 07:44 → 3NE 06-30 06:42
PROVIDERS: ADMIT Family Medicine; ATTEND Family Medicine
DX: F10.239 Alcohol dependence with withdrawal, unspecified (principal); A04.7 Enterocolitis due to Clostridium difficile; F33.2 Major depressive disorder, recurrent severe without psychotic features; I11.9 Hypertensive heart disease without heart failure; R45.851 Suicidal ideations; E11.9 Type 2 diabetes mellitus without complications; F12.10 Cannabis abuse, uncomplicated; F17.210 Nicotine dependence, cigarettes, uncomplicated; F41.9 Anxiety disorder, unspecified; G89.4 Chronic pain syndrome; I16.0 Hypertensive urgency; J44.9 Chronic obstructive pulmonary disease, unspecified; S61.511A Laceration without foreign body of right wrist, initial encounter; S61.512A Laceration without foreign body of left wrist, initial encounter; Z59.0 Homelessness; Z83.3 Family history of diabetes mellitus; F10.229 Alcohol dependence with intoxication, unspecified; Y90.9 Presence of alcohol in blood, level not specified
CPT/HCPCS: 36415; 80048; 80053; 80307; 80329; 81001; 82565; 83735; 84100; 84443; 85025; 87324; 87493; 96374; 96375; J1650; J1885; J2405; J3411; J3475; J3480; G0479; G0480; J2060; J7030

== ENCOUNTER 2017-07-30 16:13 | Observation (INO) | payer MEDICAID ==
[~2017-07-30] VITALS: Ht 149.9 cm; Wt 63.5 kg
[~2017-07-30 16:13] MED LIST changes: +ACID1TAB7 PO; +CARV3.1212 PO; +CARV3.122 PO; +DIPH50CA PO; +FLUO20CA8 PO; +FOLI-17 PO; +GABA-826 PO; +IBUP-1484 PO; +LISI-170 PO; +MULT1TAB60 PO; +THIA100T6 PO; +TRAM50TA2 PO; +TRAZ50TA18 PO
[2017-07-30] MEDS ORDERED: LORazepam 1MG TABLET ONE (16:55)
[2017-07-30 17:00] LABS: HEMATOCRIT 47.3 % (34.6-47.8); WHITE BLOOD COUNT 10.5 x10^3/uL (3.4-10)
[2017-07-30] MEDS ORDERED: LORazepam 1MG TABLET PO ONE (17:00)
[2017-07-30] MEDS ORDERED: PLEASE ENTER HEIGHT AND WEIGHT MC SCH (17:00)
[2017-07-30 17:05] LABS: BLOOD UREA NITROGEN 15 mg/dL (7-18)
[2017-07-30 17:15] LABS: ACETAMINOPHEN < 2 mcg/mL (10-30)
[2017-07-30] MEDS ORDERED: FLUO20TA25 PO (17:15)
[2017-07-30] MEDS ORDERED: GABA-827 PO (17:15)
[2017-07-30] MEDS ORDERED: HYDR50TA13 PO (17:16)
[2017-07-30] MEDS ORDERED: CARVEDILOL 3.125 MG TABLET PO STA (18:13)
[2017-07-30] MEDS ORDERED: ALBUTEROL/IPRATROPIUM 2.5MG/0.5MG, 3 ML ONE (18:20)
[2017-07-30] MEDS ORDERED: ALBUTEROL/IPRATROPIUM 2.5MG/0.5MG, 3 ML NPPB ONE (18:30)
[2017-07-30 18:40] LABS: DAU SCREEN DISCLAIMER
[2017-07-30] MEDS ORDERED: POLYETHYLENE GLYCOL 17 GM PACKET PO PRN (20:00)
[2017-07-30] MEDS ORDERED: DIPHENHYDRAMINE 50 MG CAPSULE PO PRN (20:00)
[2017-07-30] MEDS ORDERED: GUAIFENESIN/COD200MG-20MG/10ML LIQUID PO PRN (20:00)
[2017-07-30] MEDS ORDERED: ALBUTEROL/IPRATROPIUM 2.5MG/0.5MG, 3 ML NPPB PRN (20:30)
[2017-07-30] MEDS: FLUOXETINE 20 MG CAPSULE PO SCH (21:00)
[2017-07-30 22:00] VITALS: BP 137/93
[2017-07-30] MEDS: TRAZODONE 50MG TABLET PO SCH (22:23)
[2017-07-30] MEDS: GABAPENTIN 400 MG CAPSULE PO SCH (22:23)
[2017-07-31 01:20] VITALS: BP 123/84
[2017-07-31 05:46] VITALS: BP 138/83
[2017-07-31] MEDS: CARVEDILOL 3.125 MG TABLET PO SCH ×2 (05:46→18:34)
[2017-07-31] MEDS: ALBUTEROL/IPRATROPIUM 2.5MG/0.5MG, 3 ML NPPB SCH ×4 (07:00→19:10)
[2017-07-31] MEDS: FLUOXETINE 20 MG CAPSULE PO SCH ×3 (09:00→21:00)
[2017-07-31] MEDS: THIAMINE 100MG TABLET PO SCH (09:11)
[2017-07-31] MEDS: FOLIC ACID 1 MG TABLET PO SCH (09:13)
[2017-07-31] MEDS: MULTIVITAMIN 1 TABLET PO SCH (09:13)
[2017-07-31] MEDS: LISINOPRIL 20 MG TABLET PO SCH (09:13)
[2017-07-31] MEDS: GABAPENTIN 400 MG CAPSULE PO SCH ×3 (09:13→21:05)
[2017-07-31 09:14] VITALS: BP 130/82
[2017-07-31] MEDS: DOXYCYCLINE 100MG TABLET PO SCH ×2 (12:04→21:03)
[2017-07-31] MEDS: SENNA/DOCUSATE TABLET PO SCH (12:04)
[2017-07-31] MEDS: FLUTICASONE/VILANTEROL 200-25MCG/INH INH SCH (12:05)
[2017-07-31 13:28] VITALS: BP 122/88
[2017-07-31 19:53] VITALS: BP 97/61
[2017-07-31] MEDS: TRAZODONE 50MG TABLET PO SCH (21:04)
[2017-08-01 00:30] VITALS: BP 115/72
[2017-08-01 05:32] VITALS: BP 137/95
[2017-08-01] MEDS: CARVEDILOL 3.125 MG TABLET PO SCH ×2 (05:35→16:50)
[2017-08-01] MEDS: ALBUTEROL/IPRATROPIUM 2.5MG/0.5MG, 3 ML NPPB SCH ×4 (07:30→20:29)
[2017-08-01 07:58] VITALS: BP 130/92
[2017-08-01] MEDS: DOXYCYCLINE 100MG TABLET PO SCH ×2 (08:04→21:56)
[2017-08-01] MEDS: FLUTICASONE/VILANTEROL 200-25MCG/INH INH SCH (08:04)
[2017-08-01] MEDS: GABAPENTIN 400 MG CAPSULE PO SCH ×3 (08:05→21:56)
[2017-08-01] MEDS: FLUOXETINE 20 MG CAPSULE PO SCH ×3 (08:05→21:56)
[2017-08-01] MEDS: FOLIC ACID 1 MG TABLET PO SCH (08:05)
[2017-08-01] MEDS: MULTIVITAMIN 1 TABLET PO SCH (08:05)
[2017-08-01] MEDS: SENNA/DOCUSATE TABLET PO SCH (08:05)
[2017-08-01] MEDS: THIAMINE 100MG TABLET PO SCH (08:05)
[2017-08-01] MEDS: LISINOPRIL 20 MG TABLET PO SCH (08:06)
[2017-08-01] MEDS ORDERED: GUAIFENESIN/DM 200-20MG, 10ML UDC PO PRN (11:30)
[2017-08-01 14:00] VITALS: BP 125/86
[2017-08-01] MEDS: LORazepam 1MG TABLET PO PRN (16:42)
[2017-08-01] MEDS: ACETAMINOPHEN 325 MG TABLET PO PRN (16:48)
[2017-08-01 18:29] VITALS: BP 116/80
[2017-08-01] MEDS ORDERED: FLU VACC QS2017-18 (36MOS+) UP/PF 0.5 ML IM-VACC ONE (18:30)
[2017-08-01] MEDS: TRAZODONE 50MG TABLET PO SCH (21:56)
[2017-08-02 00:58] VITALS: BP 147/87
[2017-08-02] MEDS: CARVEDILOL 3.125 MG TABLET PO SCH ×2 (05:59→16:58)
[2017-08-02 06:55] VITALS: BP 153/112
[2017-08-02] MEDS: ALBUTEROL/IPRATROPIUM 2.5MG/0.5MG, 3 ML NPPB SCH ×4 (07:00→20:40)
[2017-08-02] MEDS: FLUTICASONE/VILANTEROL 200-25MCG/INH INH SCH (08:05)
[2017-08-02] MEDS: DOXYCYCLINE 100MG TABLET PO SCH ×2 (08:05→20:54)
[2017-08-02] MEDS: MULTIVITAMIN 1 TABLET PO SCH (08:05)
[2017-08-02] MEDS: ACETAMINOPHEN 325 MG TABLET PO PRN (08:05)
[2017-08-02] MEDS: THIAMINE 100MG TABLET PO SCH (08:05)
[2017-08-02] MEDS: LISINOPRIL 20 MG TABLET PO SCH (08:05)
[2017-08-02] MEDS: FLUOXETINE 20 MG CAPSULE PO SCH ×3 (08:05→20:54)
[2017-08-02] MEDS: GABAPENTIN 400 MG CAPSULE PO SCH ×3 (08:05→20:54)
[2017-08-02] MEDS: FOLIC ACID 1 MG TABLET PO SCH (08:05)
[2017-08-02] MEDS: SENNA/DOCUSATE TABLET PO SCH (08:06)
[2017-08-02] MEDS: LORazepam 1MG TABLET PO PRN ×2 (08:08→17:49)
[2017-08-02] MEDS: GUAIFENESIN ER 600 MG TABLET PO SCH ×2 (12:31→20:54)
[2017-08-02 13:00] VITALS: BP 125/86
[2017-08-02 16:15] VITALS: BP 133/90
[2017-08-02 19:32] VITALS: BP 133/88
[2017-08-02] MEDS: TRAZODONE 50MG TABLET PO SCH (20:54)
[2017-08-03] MEDS: CARVEDILOL 3.125 MG TABLET PO SCH ×2 (06:21→16:14)
[2017-08-03] MEDS: LORazepam 1MG TABLET PO PRN ×2 (06:21→14:28)
[2017-08-03 06:28] VITALS: BP 165/111
[2017-08-03 06:29] VITALS: BP 147/106
[2017-08-03] MEDS: ALBUTEROL/IPRATROPIUM 2.5MG/0.5MG, 3 ML NPPB SCH (07:00)
[2017-08-03 07:11] VITALS: BP 151/102
[2017-08-03] MEDS ORDERED: IPRATROPIUM 0.5 MG/2.5 ML INHA ONE ×2 (07:49)
[2017-08-03] MEDS ORDERED: ALBUTEROL SULFATE 2.5 MG/3 ML ONE (07:50)
[2017-08-03] MEDS: FLUTICASONE/VILANTEROL 200-25MCG/INH INH SCH (08:41)
[2017-08-03] MEDS: MULTIVITAMIN 1 TABLET PO SCH (08:42)
[2017-08-03] MEDS: DOXYCYCLINE 100MG TABLET PO SCH ×2 (08:42→20:14)
[2017-08-03] MEDS: GABAPENTIN 400 MG CAPSULE PO SCH ×3 (08:42→20:14)
[2017-08-03] MEDS: FLUOXETINE 20 MG CAPSULE PO SCH ×3 (08:42→20:14)
[2017-08-03] MEDS: GUAIFENESIN ER 600 MG TABLET PO SCH ×2 (08:42→20:14)
[2017-08-03] MEDS: FOLIC ACID 1 MG TABLET PO SCH (08:42)
[2017-08-03] MEDS: THIAMINE 100MG TABLET PO SCH (08:43)
[2017-08-03] MEDS: LISINOPRIL 20 MG TABLET PO SCH (08:43)
[2017-08-03] MEDS: SENNA/DOCUSATE TABLET PO SCH (08:47)
[2017-08-03] MEDS ORDERED: CARVEDILOL 6.25 MG TABLET ONE (15:59)
[2017-08-03 19:13] VITALS: BP 135/89
[2017-08-03] MEDS ORDERED: DOXYCYCLINE 100MG TABLET ONE (19:55)
[2017-08-03] MEDS: TRAZODONE 50MG TABLET PO SCH (21:00)
[2017-08-04 04:25] VITALS: BP 159/107
[2017-08-04] MEDS: LORazepam 1MG TABLET PO PRN (04:28)
[2017-08-04 06:20] VITALS: BP 139/107
[2017-08-04] MEDS: CARVEDILOL 3.125 MG TABLET PO SCH (06:22)
[2017-08-04] MEDS ORDERED: ALBUTEROL/IPRATROPIUM 2.5MG/0.5MG, 3 ML NPPB PRN (07:00)
[2017-08-04 07:13] VITALS: BP 159/118
[2017-08-04] MEDS: FLUTICASONE/VILANTEROL 200-25MCG/INH INH SCH (07:43)
[2017-08-04] MEDS: GUAIFENESIN ER 600 MG TABLET PO SCH (07:44)
[2017-08-04] MEDS: ACETAMINOPHEN 325 MG TABLET PO PRN ×2 (07:46→13:53)
[2017-08-04] MEDS: SENNA/DOCUSATE TABLET PO SCH (08:03)
[2017-08-04] MEDS: FOLIC ACID 1 MG TABLET PO SCH (08:04)
[2017-08-04] MEDS: THIAMINE 100MG TABLET PO SCH (08:04)
[2017-08-04] MEDS: GABAPENTIN 400 MG CAPSULE PO SCH (08:04)
[2017-08-04] MEDS: DOXYCYCLINE 100MG TABLET PO SCH (08:05)
[2017-08-04] MEDS: FLUOXETINE 20 MG CAPSULE PO SCH (08:05)
[2017-08-04] MEDS: MULTIVITAMIN 1 TABLET PO SCH (08:13)
[2017-08-04] MEDS: LISINOPRIL 20 MG TABLET PO SCH (08:13)
== END 2017-08-04 14:00 ==
LOC: ED 17:39 → EDIP 19:31 → 4WST 20:58 → 3E 08-02 16:11
PROVIDERS: ADMIT Hospitalist; ATTEND Hospitalist
DX: S11.91XA Laceration without foreign body of unspecified part of neck, initial encounter (principal); J44.1 Chronic obstructive pulmonary disease with (acute) exacerbation; F32.9 Major depressive disorder, single episode, unspecified; I10 Essential (primary) hypertension; M54.9 Dorsalgia, unspecified; G89.29 Other chronic pain; F19.90 Other psychoactive substance use, unspecified, uncomplicated; F12.90 Cannabis use, unspecified, uncomplicated; Z87.891 Personal history of nicotine dependence; Z23 Encounter for immunization; X78.8XXA Intentional self-harm by other sharp object, initial encounter; Y93.89 Activity, other specified; Y92.89 Other specified places as the place of occurrence of the external cause; Y99.8 Other external cause status
CPT/HCPCS: 36415; 71010; 80048; 80307; 80329; 82040; 85025; 90471; 90686; 94640; 99285; G0378; J7512; J7613; J7620; J7644; G0479; G0480